=== PATIENT | male | born 1945 | race Caucasian/White ===

== ENCOUNTER 2021-10-20 19:03 | Observation (INO) ==
[2021-10-20] MEDS ORDERED: Ipratropium/Albuterol Neb 3 ML IH ONE (19:06)
[2021-10-20] MEDS ORDERED: 0.9 % Sodium Chloride 1,000 ML IVC ONE (19:06)
[2021-10-20] MEDS ORDERED: methylPREDNISolone 125 MG/2 ML VIAL IVP ONE (19:15)
[2021-10-20] MEDS ORDERED: cefTRIAXone 2,000 MG in 0.9 % Sodium Chloride 20 ML IVP ONE (19:15)
[2021-10-20] MEDS ORDERED: Azithromycin 500 MG in 0.9 % Sodium Chloride 250 ML IVPB ONE (19:16)
[2021-10-20 19:29] LABS: Hematocrit 35.6 % (37.5-50.1); Hemoglobin 11.4 g/dL (12.9-16.9); Mean Corpuscular Hemoglobin 27.3 pg (28.0-33.3); Mean Corpuscular Volume 85.2 fL (83.0-100.0); Mean Platelet Volume 9.3 fL (9.4-12.4); Platelet Count 183 K/mcL (140-400); Red Blood Count 4.18 M/mcL (4.19-5.50); Red Cell Distribution Width 15.3 % (11.5-14.5)
[2021-10-20] MEDS ORDERED: 0.9 % Sodium Chloride 1,000 ML IVC SCH (19:30)
[2021-10-20 19:37] LABS: INR 2.8; Prothrombin Time 31.5 Seconds (9.4-12.1)
[2021-10-20 19:48] LABS: Albumin 3.6 g/dL (3.5-5.7); Albumin/Globulin Ratio 1.3 (1.1-2.2); Bilirubin,Direct 0.2 mg/dL (0.0-0.2); Bilirubin,Indirect 0.7 mg/dL (0.0-1.0); Bilirubin,Total 0.9 mg/dL (0.3-1.0); Calcium 8.8 mg/dL (8.6-10.3); Globulin 2.8 g/dL (2.4-3.5); Potassium 3.7 mEq/L (3.5-5.1); Total Protein 6.4 g/dL (6.4-8.9); Troponin I 0.03 ng/mL (< 0.04)
[2021-10-20 20:03] LABS: Anisocytosis 1+ (Not Present); Dohle Bodies Present (Not Present); Hypochromasia Present (Not Present); Lymphocytes # 1.5 K/mcL (0.6-4.6); Monocytes # 1.5 K/mcL (0.0-1.3); Platelet Estimate Normal (Normal)
[2021-10-20 22:31] LABS: Bilirubin,Urine Negative (Negative); Blood,Urine Negative (Negative); Clarity,Urine Clear (Clear); Color,Urine Yellow (Yellow); Glucose,Urine (UA) Normal (Normal); Ketones,Urine Negative (Negative); Leukocyte Esterase,Urine Negative (Negative); Nitrite,Urine Negative (Negative); Protein,Urine Negative (Neg-Trace); Specific Gravity,Urine 1.015 (1.010-1.025); Urobilinogen,Urine Normal (Normal)
[2021-10-20] MEDS ORDERED: Albuterol 2.5 MG/3 ML NEBULIZER IH PRN (23:15)
[2021-10-20] MEDS ORDERED: Melatonin 3 MG TABLET PO PRN (23:15)
[2021-10-20] MEDS ORDERED: Ondansetron ODT 4 MG TAB.RAPDIS SL PRN (23:15)
[2021-10-20] MEDS ORDERED: Mag Hydrox/Al Hydrox/Simeth 30 ML UDC PO PRN (23:15)
[2021-10-20] MEDS ORDERED: MOM Conc 10 ML UD.LIQ PO PRN (23:15)
[2021-10-20] MEDS ORDERED: Acetaminophen 325 MG TABLET PO PRN (23:15)
[2021-10-20] MEDS ORDERED: Naloxone 0.4 MG/ML INJ IVP PRN (23:15)
[2021-10-21] MEDS: Gabapentin 100 MG CAPSULE PO SCH ×2 (00:18→21:21)
[2021-10-21] MEDS: MethylPREDNISolone 40 MG/ML VIAL IVP SCH ×3 (00:18→17:08)
[2021-10-21] MEDS: Ipratropium/Albuterol Neb 3 ML IH SCH ×3 (01:30→09:29)
[2021-10-21] MEDS: 0.9 % Sodium Chloride 1,000 ML IVC SCH ×3 (04:51→21:26)
[2021-10-21] MEDS: Acyclovir 200 MG CAPSULE PO SCH (08:27)
[2021-10-21 08:52] LABS: BUN/Creatinine Ratio 20 (6-26); Blood Urea Nitrogen 27 mg/dL (8-23); Carbon Dioxide 23 mEq/L (23-29); Chloride 101 mEq/L (98-107); Glucose 125 mg/dL (70-105); Osmolality,Calculated 283 (280-300); Potassium 3.7 mEq/L (3.5-5.1); Sodium 133 mEq/L (136-145); eGFR For African Americans > 60 (> 60); eGFR For Non-African Americans 51 (> 60)
[2021-10-21 09:35] LABS: Hemoglobin 10.6 g/dL (12.9-16.9); Mean Corpuscular HGB Conc 32.1 g/dL (31.6-35.5); Mean Corpuscular Hemoglobin 27.5 pg (28.0-33.3); Mean Corpuscular Volume 85.5 fL (83.0-100.0); Mean Platelet Volume 9.5 fL (9.4-12.4); Platelet Count 183 K/mcL (140-400); Red Blood Count 3.86 M/mcL (4.19-5.50); Red Cell Distribution Width 15.7 % (11.5-14.5); White Blood Count 26.6 K/mcL (4.3-11.1)
[2021-10-21 09:47] LABS: Prothrombin Time 33.3 Seconds (9.4-12.1)
[2021-10-21 10:26] LABS: Lymphocytes # 0.5 K/mcL (0.6-4.6); Monocytes # 0.5 K/mcL (0.0-1.3); Neutrophils # 25.5 K/mcL (1.6-8.9); Platelet Estimate Normal (Normal); Toxic Granulation Present (Not Present)
[2021-10-21 11:28] LABS: Adenovirus Not Detected (Not Detect); Bordetella Pertussis Not Detected (Not Detect); Chlamydophila pneumoniae Not Detected (Not Detect); Coronavirus 229E Not Detected (Not Detect); Coronavirus HKU1 Not Detected (Not Detect); Coronavirus NL63 Not Detected (Not Detect); Coronavirus OC43 Not Detected (Not Detect); Human Metapneumovirus Not Detected (Not Detect); Human Rhinovirus/Enterovirus Not Detected (Not Detect); Influenza A Subtype 2009 H1 Not Detected (Not Detect); Influenza B Not Detected (Not Detect); Mycoplasma pneumoniae Not Detected (Not Detect); Parainfluenza Virus 1 Not Detected (Not Detect); Parainfluenza Virus 2 Not Detected (Not Detect); Parainfluenza Virus 3 Not Detected (Not Detect); Parainfluenza Virus 4 Not Detected (Not Detect); Respiratory Syncytial Virus Not Detected (Not Detect); SARS-CoV-2 Not Detected (Not Detect)
[2021-10-21] MEDS ORDERED: Ipratropium/Albuterol Neb 3 ML IH PRN (13:37)
[2021-10-21] MEDS ORDERED: 0.9 % Sodium Chloride 500 ML IVC PRN (15:42)
[2021-10-21] MEDS: cefTRIAXone 2,000 MG in 0.9 % Sodium Chloride 20 ML IVPB SCH (17:09)
[2021-10-21] MEDS: Azithromycin 500 MG in 0.9 % Sodium Chloride 250 ML IVPB SCH (17:16)
[2021-10-21] MEDS ORDERED: *HR* Warfarin 0.5 MG TABLET PO ONE (18:00)
[2021-10-21] MEDS ORDERED: Warfarin perPT PO PRN (18:00)
[2021-10-21] MEDS ORDERED: *HR* Warfarin 2.5 MG TABLET PO SCH (18:00)
[2021-10-22] MEDS: MethylPREDNISolone 40 MG/ML VIAL IVP SCH (00:38)
[2021-10-22] MEDS: 0.9 % Sodium Chloride 1,000 ML IVC SCH (01:33)
[2021-10-22 07:34] LABS: Prothrombin Time 22.3 Seconds (9.4-12.1)
[2021-10-22 07:35] LABS: Basophils % 0.1 %; Hemoglobin 9.6 g/dL (12.9-16.9); Immature Granulocytes % 1.7 % (0-4); Lymphocytes # 0.8 K/mcL (0.6-4.6); Lymphocytes % 3.8 %; Mean Corpuscular Hemoglobin 27.4 pg (28.0-33.3); Mean Corpuscular Volume 85.5 fL (83.0-100.0); Mean Platelet Volume 9.8 fL (9.4-12.4); Monocytes # 1.2 K/mcL (0.0-1.3); Monocytes % 5.8 %; Platelet Count 173 K/mcL (140-400); Red Blood Count 3.51 M/mcL (4.19-5.50); Red Cell Distribution Width 16.1 % (11.5-14.5); Segmented Neutrophils % 88.6 %; White Blood Count 20.6 K/mcL (4.3-11.1)
[2021-10-22 07:57] LABS: Neutrophils # 18.3 K/mcL (1.6-8.9)
[2021-10-22] MEDS: Acyclovir 200 MG CAPSULE PO SCH (08:57)
[2021-10-22 11:09] LABS: BUN/Creatinine Ratio 30 (6-26); Blood Urea Nitrogen 28 mg/dL (8-23); Calcium 7.8 mg/dL (8.6-10.3); Carbon Dioxide 21 mEq/L (23-29); Chloride 110 mEq/L (98-107); Glucose 140 mg/dL (70-105); Osmolality,Calculated 294 (280-300); Potassium 3.9 mEq/L (3.5-5.1); Sodium 138 mEq/L (136-145); eGFR For African Americans > 60 (> 60); eGFR For Non-African Americans > 60 (> 60)
[2021-10-22] MEDS: amLODIPine 5 MG TABLET PO SCH (15:21)
[2021-10-22] MEDS: Azithromycin 500 MG in 0.9 % Sodium Chloride 250 ML IVPB SCH (16:33)
[2021-10-22] MEDS ORDERED: CefTRIAXone 2,000 MG VIAL ONE (16:50)
[2021-10-22] MEDS: cefTRIAXone 2,000 MG in 0.9 % Sodium Chloride 20 ML IVPB SCH (17:47)
[2021-10-22] MEDS ORDERED: *HR* Warfarin 2.5 MG TABLET PO SCH (18:00)
[2021-10-22] MEDS ORDERED: *HR* Warfarin 2 MG TABLET PO ONE (18:00)
[2021-10-22] MEDS: Gabapentin 100 MG CAPSULE PO SCH (21:45)
[2021-10-23] MEDS: 0.9 % Sodium Chloride 1,000 ML IVC SCH (00:32)
[2021-10-23 07:18] LABS: Basophils % 0.2 %; Hematocrit 33.3 % (37.5-50.1); Hemoglobin 10.6 g/dL (12.9-16.9); Immature Granulocytes % 2.1 % (0-4); Lymphocytes # 1.6 K/mcL (0.6-4.6); Lymphocytes % 8.1 %; Mean Corpuscular HGB Conc 31.8 g/dL (31.6-35.5); Mean Corpuscular Hemoglobin 27.7 pg (28.0-33.3); Mean Corpuscular Volume 86.9 fL (83.0-100.0); Mean Platelet Volume 9.5 fL (9.4-12.4); Monocytes # 1.1 K/mcL (0.0-1.3); Monocytes % 5.4 %; Platelet Count 224 K/mcL (140-400); Red Blood Count 3.83 M/mcL (4.19-5.50); Red Cell Distribution Width 16.3 % (11.5-14.5); Segmented Neutrophils % 84.2 %; White Blood Count 19.9 K/mcL (4.3-11.1)
[2021-10-23 07:22] LABS: Neutrophils # 16.8 K/mcL (1.6-8.9)
[2021-10-23 07:33] LABS: INR 1.9; Prothrombin Time 20.7 Seconds (9.4-12.1)
[2021-10-23 07:56] LABS: BUN/Creatinine Ratio 28 (6-26); Blood Urea Nitrogen 26 mg/dL (8-23); Calcium 7.9 mg/dL (8.6-10.3); Carbon Dioxide 25 mEq/L (23-29); Chloride 109 mEq/L (98-107); Glucose 93 mg/dL (70-105); Osmolality,Calculated 294 (280-300); Potassium 3.8 mEq/L (3.5-5.1); Sodium 140 mEq/L (136-145); eGFR For African Americans > 60 (> 60); eGFR For Non-African Americans > 60 (> 60)
[2021-10-23] MEDS: Acyclovir 200 MG CAPSULE PO SCH (09:33)
[2021-10-23] MEDS: amLODIPine 5 MG TABLET PO SCH (09:34)
[2021-10-23] MEDS: Azithromycin 500 MG in 0.9 % Sodium Chloride 250 ML IVPB SCH (15:51)
[2021-10-23] MEDS: cefTRIAXone 2,000 MG in 0.9 % Sodium Chloride 20 ML IVPB SCH (15:52)
[2021-10-23] MEDS ORDERED: *HR* Warfarin 2 MG TABLET PO ONE (18:00)
[2021-10-23] MEDS: Gabapentin 100 MG CAPSULE PO SCH (20:24)
[2021-10-24 07:16] VITALS: BP 158/76; PULSE 61; RESP 18; TEMP 97.7; O2SAT 96
[2021-10-24 07:23] LABS: Hematocrit 35.7 % (37.5-50.1); Hemoglobin 11.6 g/dL (12.9-16.9); Mean Corpuscular HGB Conc 32.5 g/dL (31.6-35.5); Mean Corpuscular Hemoglobin 27.6 pg (28.0-33.3); Mean Corpuscular Volume 84.8 fL (83.0-100.0); Mean Platelet Volume 8.8 fL (9.4-12.4); Monocytes # 0.8 K/mcL (0.0-1.3); Nucleated Red Blood Cells 0.3 /100 WBC (0); Platelet Count 239 K/mcL (140-400); Red Blood Count 4.21 M/mcL (4.19-5.50); Red Cell Distribution Width 16.1 % (11.5-14.5)
[2021-10-24 07:39] LABS: INR 2.4; Prothrombin Time 26.8 Seconds (9.4-12.1)
[2021-10-24 07:42] LABS: BUN/Creatinine Ratio 22 (6-26); Blood Urea Nitrogen 19 mg/dL (8-23); Calcium 8.6 mg/dL (8.6-10.3); Carbon Dioxide 27 mEq/L (23-29); Chloride 102 mEq/L (98-107); Glucose 83 mg/dL (70-105); Osmolality,Calculated 285 (280-300); Sodium 137 mEq/L (136-145); eGFR For African Americans > 60 (> 60); eGFR For Non-African Americans > 60 (> 60)
[2021-10-24 08:24] LABS: Eosinophils # 0.4 K/mcL (0.0-0.6); Lymphocytes # 2.6 K/mcL (0.6-4.6)
[2021-10-24 08:26] LABS: Platelet Estimate Normal (Normal)
[2021-10-24] MEDS: Acyclovir 200 MG CAPSULE PO SCH (09:36)
[2021-10-24] MEDS: amLODIPine 5 MG TABLET PO SCH (09:37)
== END 2021-10-24 10:04 | disposition home or self-care (01) ==
LOC: INPPIK 19:03 → EMEROOPIK 19:03 → INPPIK 23:55
PROVIDERS: ADMIT Internal Medicine; ATTEND Internal Medicine